=== PATIENT | male | born 1960 | race Caucasian/White ===

== ENCOUNTER 2017-01-27 18:00 | Inpatient (IN) | payer OTHER ==
[2017-01-27] MEDS ORDERED: Sodium Chloride 0.9% 1000 ML 1,000 ML IV STA (18:44)
[2017-01-27] MEDS ORDERED: DUONEB 0.5-3 MG/3 ml Neb IH ONE (18:44)
[2017-01-27] MEDS ORDERED: Sodium Chloride 0.9% 1000 ML 1,000 ML ONE (18:50)
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
[2017-01-27 19:05] LABS: Mean Cell Volume 93.3 fl (78-100); Mean Corpuscular Hemoglobin 31.4 pg (26-32); Mean Platelet Volume 11.3 fl (6-9.5); Platelet Count 147 K/mm3 (150-450); Red Blood Count 5.25 M/mm3 (4.1-5.6); Red Cell Distribution Width 14.1 % (11.5-14.0); White Blood Count 12.6 K/mm3 (4.0-10.5)
[2017-01-27] MEDS ORDERED: PROVENTIL 2.5 MG/3 ML NEB IH ONE ×2 (19:09→19:21)
[2017-01-27 19:15] LABS: ALBUMIN 3.8 g/dL (3.4-5.0); ALKALINE PHOSPHATASE 90 U/L (46-116); ANION GAP 16.2 MEQ/L (5-15); BILIRUBIN,TOTAL 0.5 mg/dL (0.2-1.0); BLOOD UREA NITROGEN 14 mg/dL (9-20); CHLORIDE 104 mEq/L (98-107); Carbon Dioxide 22.3 mEq/L (21-32); Glucose 210 MG/DL (70-110); Potassium 3.6 mEq/L (3.5-5.1); SGOT/AST 24 U/L (15-37); SGPT/ALT 28 U/L (12-78); SODIUM 139 mEq/L (136-145); Total Protein 7.5 gm/dL (6.4-8.2)
[2017-01-27 19:16] LABS: TROPONIN < 0.017 ng/ml (0.000-0.056)
[2017-01-27] MEDS ORDERED: ROCEPHIN 1 Gm-D5w 50 ml Bag** 50 ML IV ONE ×2 (19:38→19:45)
[2017-01-27] MEDS ORDERED: solu-MEDROL 125 MG IV ONE (19:38)
[2017-01-27] MEDS ORDERED: MORPHINE SULFATE 4 MG INJ IV ONE (19:39)
[2017-01-27] MEDS ORDERED: Zofran 4 MG/2 ML VIAL IV ONE (19:39)
[2017-01-27] MEDS ORDERED: Zofran 4 MG/2 ML VIAL ONE (19:44)
[2017-01-27] MEDS ORDERED: MORPHINE SULFATE 4 MG INJ ONE (19:45)
[2017-01-27] MEDS ORDERED: solu-MEDROL 125 MG ONE (19:45)
[2017-01-27 19:53] LABS: Eosinophil 2 % (0.00-3.0); Total Cells Counted 100
[2017-01-27 19:54] LABS: Platelet Estimate NORMAL (NORMAL)
[2017-01-27 20:04] LABS: VBG BASE EXCESS 0.6 (-2.0-2.0); VBG CARBOXYHEMOGLOBIN 4.1 % T HGB (0.0-6.9); VBG HCO3- 27.1 meq/L (22-28); VBG HEMOGLOBIN 15.5; VBG O2 SATURATION 52.9 (95-100); VBG POTASSIUM 3.7 (3.5-5.1); VBG pH 7.35 (7.32-7.42)
[2017-01-27] MEDS ORDERED: Zofran 4 MG/2 ML VIAL IV PRN (21:00)
[2017-01-27] MEDS ORDERED: Sodium Chloride 0.9% 1000 ML 1,000 ML IV SCH (21:00)
[2017-01-27] MEDS: PROVENTIL 2.5 MG/3 ML NEB IH SCH (22:29)
[2017-01-28] MEDS ORDERED: solu-MEDROL 125 MG IV SCH
[2017-01-28] MEDS: Sodium Chloride 0.9% 1000 ML 1,000 ML IV SCH ×2 (01:19→14:03)
[2017-01-28] MEDS: solu-MEDROL 125 MG IV SCH ×5 (02:28→23:57)
[2017-01-28] MEDS: PROVENTIL 2.5 MG/3 ML NEB IH SCH ×6 (03:06→23:07)
[2017-01-28 05:34] LABS: Mean Cell Volume 94.7 fl (78-100); Mean Corpuscular Hemoglobin 31.3 pg (26-32); Mean Platelet Volume 11.4 fl (6-9.5); Platelet Count 133 K/mm3 (150-450); Red Blood Count 4.89 M/mm3 (4.1-5.6); White Blood Count 14.1 K/mm3 (4.0-10.5)
[2017-01-28 06:06] LABS: ALBUMIN 3.4 g/dL (3.4-5.0); ALKALINE PHOSPHATASE 82 U/L (46-116); ANION GAP 13.2 MEQ/L (5-15); BILIRUBIN,TOTAL 0.3 mg/dL (0.2-1.0); BLOOD UREA NITROGEN 14 mg/dL (9-20); CHLORIDE 105 mEq/L (98-107); Carbon Dioxide 25.2 mEq/L (21-32); Glucose 219 MG/DL (70-110); Potassium 4.2 mEq/L (3.5-5.1); SGOT/AST 16 U/L (15-37); SGPT/ALT 29 U/L (12-78); SODIUM 139 mEq/L (136-145)
[2017-01-28] MEDS: NovoLOG Insulin SQ PRN ×3 (08:01→18:04)
[2017-01-28] MEDS: ROCEPHIN 1 Gm-D5w 50 ml Bag** 50 ML IV SCH (08:25)
--- NOTE | 2017-01-28 08:58 | XRAY ---
Indication: Cough and short of breath. Comparison: June 05, 2016. Portable chest remains hyperinflated without focal infiltrate, consolidation, or large effusion. Heart is not enlarged. Stable mediastinal calcified nodes. Bony thorax intact again with mild osteopenia and degenerative changes. Impression: Stable nonacute hyperinflated chest with chronic features.
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
[2017-01-28] MEDS ORDERED: Spiriva 18 Mcg/Cap Inhaler IH ONE (09:04)
[2017-01-28] MEDS: Aminophylline 500 MG/20 ML*** 500 MG in Sodium Chloride 0.9% 500 ML 480 ML IV SCH (09:50)
[2017-01-28] MEDS: Zithromax 500 MG/ 250 ML NaCl Premix 250 ML IV SCH (09:50)
[2017-01-28] MEDS: Norco 10/325 MG Tablet PO PRN ×3 (09:52→22:14)
[2017-01-28] MEDS ORDERED: PNEUMOVAX 23 IM ONE (10:00)
[2017-01-28] MEDS ORDERED: FLUZONE QUAD 2016-2017 SYRINGE 36MO-64YO IM ONE (10:00)
[2017-01-28] MEDS ORDERED: PHARMACY DOSING REQUEST MC ONE (10:05)
[2017-01-28] MEDS: Spiriva 18 Mcg/Cap Inhaler IH SCH (19:49)
[2017-01-29] MEDS: MORPHINE SULFATE 4 MG INJ IV PRN ×2 (00:13→05:12)
[2017-01-29] MEDS: Sodium Chloride 0.9% 1000 ML 1,000 ML IV SCH ×2 (00:13→09:52)
[2017-01-29] MEDS: Aminophylline 500 MG/20 ML*** 500 MG in Sodium Chloride 0.9% 500 ML 480 ML IV SCH ×3 (00:13→15:05)
[2017-01-29] MEDS: Norco 10/325 MG Tablet PO PRN ×3 (02:28→13:05)
[2017-01-29] MEDS: PROVENTIL 2.5 MG/3 ML NEB IH SCH (02:55)
[2017-01-29] MEDS: solu-MEDROL 125 MG IV SCH ×3 (05:22→17:36)
[2017-01-29] MEDS ORDERED: Xopenex 1.25 MG/0.5 ML UD NEBULE IH SCH (07:00)
[2017-01-29] MEDS: Xopenex 1.25 MG/0.5 ML UD NEBULE IH SCH ×5 (08:00→23:10)
[2017-01-29] MEDS: Sodium Chloride 3 ML UD NEBULES IH SCH ×5 (08:00→23:10)
[2017-01-29] MEDS: Spiriva 18 Mcg/Cap Inhaler IH SCH (08:00)
[2017-01-29] MEDS: NovoLOG Insulin SQ PRN ×2 (08:29→17:36)
[2017-01-29] MEDS: ROCEPHIN 1 Gm-D5w 50 ml Bag** 50 ML IV SCH (11:49)
[2017-01-29] MEDS: Zithromax 500 MG/ 250 ML NaCl Premix 250 ML IV SCH (12:59)
--- NOTE | 2017-01-29 14:15 | PCM.NOTE ---
Date and Time: 01/29/17 140 Subjective Assessment: Pt feeling a little better. Elijah po fine. Coughing up quite a bit of sputum. C/o lower back pain. Smokes 1 PPD, would like a patch. - Review of Systems Constitutional: No Fever Respiratory: Cough, Short Of Breath Objective Exam General Appearance: no apparent distress Neurologic Exam: alert, oriented x 3, cooperative Skin Exam: normal color, warm, dry Respiratory Exam: diminished breath sounds (good air exchange), wheezing ( throughout, expiratory), No crackles/rales, No rhonchi Cardiovascular Exam: regular rate/rhythm, normal heart sounds, No murmur Extremity Exam: No pedal edema, No swelling Back Exam: normal inspection OBJECTIVE DATA Vital Signs: Vital Signs - 24 hr Temp Pulse Resp BP Pulse Ox 01/29/17 13:49 20 01/29/17 11:41 97.8 F 88 20 125/67 93 L 01/29/17 11:00 85 18 94 L 01/29/17 10:00 181 H 01/29/17 07:36 98.3 F 88 20 102/57 96 01/29/17 07:00 96 H 20 95 01/29/17 06:00 20 01/29/17 04:00 97.7 F 89 22 104/50 92 L 01/29/17 02:55 89 22 92 L 01/29/17 02:00 21 01/28/17 23:44 97.7 F 91 H 18 99/58 92 L 01/28/17 23:07 98 H 18 89 L 01/28/17 22:00 18 01/28/17 19:51 97.7 F 112 H 26 H 140/70 94 L 01/28/17 19:11 96 H 24 91 L 01/28/17 18:00 20 01/28/17 16:00 97.7 F 106 H 20 121/68 91 L Oxygen-Last 24 hours O2 Percentage 4 Liters = 36% O2 Percentage 4 Liters = 36% O2 Percentage 4 Liters = 36% O2 Percentage 4 Liters = 36% O2 Percentage 3 Liters = 32% O2 Percentage 3 Liters = 32% Pain Assessment - Last Documented Pain Intensity 7 Pain Scale Used 0-10 Pain Scale Intake and Output: Intake & Output 03/02/17 03/03/17 03/04/17 03/05/17 11:59 11:59 11:59 11:59 Intake Total 480 7329 480 Output Total 5050 Balance 480 3371 480 Weight 101.65 kg 104.236 kg Lab Results: Accuchecks Date 01/28/17 Date 01/28/17 Time 22:00 Time 16:30 Accucheck Value: 198 Accucheck Value: 221 Accucheck Value: 199 Accucheck Value: 231 Lab Results-Last 24 Hours 01/29/17 Range/Units 05:40 Theophylline 6.6 L (10-20.0) ug/ml Multi-Disciplinary Progress Notes: Multi-Disciplinary Progress Notes 01/29/17 09:19 Pharmacy Note by Willian Romero Theophyline level low at 6.6. Had not had 24hrs of infusion yet. Will increase rate to 45mg/hr though to ensure therapeutic level. Initialized on 01/29/17 09:19 - END OF NOTE Assessment/Plan (1) COPD with exacerbation Current Visit: Yes Status: Acute Assessment & Plan: He is on rocephin and zithromax IV, solumedrol 125mg IV , and aminophylline. He is actually moving air pretty well. Still on 4L NC and doesn't typically use O2 at home, although he would not mind to go home on O2 when he is discharged. He will need several more days of IV treatment before considering discharge. Code(s): J44.1 - CHRONIC OBSTRUCTIVE PULMONARY DISEASE W (ACUTE) EXACERBATION (2) Anxiety Current Visit: No Status: Chronic Code(s): F41.9 - ANXIETY DISORDER, UNSPECIFIED (3) Chronic back pain Current Visit: No Status: Chronic Qualifiers: Back pain location: low back pain Back pain laterality: unspecified Sciatica presence: unspecified whether sciatica present Qualified Code(s): M54.5 - Low back pain; G89.29 - Other chronic pain Assessment & Plan: will change norco to percocet, remove the morphine from patient's medicines. Code(s): M54.9 - DORSALGIA, UNSPECIFIED; G89.29 - OTHER CHRONIC PAIN (4) Tobacco abuse Current Visit: Yes Status: Acute Assessment & Plan: nicotine patch. advised pt he should quit smoking. Code(s): Z72.0 - TOBACCO USE
[2017-01-29 14:54] LABS: Mean Cell Volume 98.7 fl (78-100); Mean Corpuscular Hemoglobin 31.6 pg (26-32); Platelet Count 162 K/mm3 (150-450); Red Blood Count 4.59 M/mm3 (4.1-5.6); Red Cell Distribution Width 14.6 % (11.5-14.0); White Blood Count 21.3 K/mm3 (4.0-10.5)
[2017-01-29] MEDS: Nicoderm CQ 21 MG TOP SCH (14:59)
[2017-01-29 15:03] LABS: ANION GAP 19.5 MEQ/L (5-15); BLOOD UREA NITROGEN 17 mg/dL (9-20); CHLORIDE 106 mEq/L (98-107); Carbon Dioxide 21.5 mEq/L (21-32); Glucose 205 MG/DL (70-110); Potassium 4.2 mEq/L (3.5-5.1); SODIUM 143 mEq/L (136-145)
[2017-01-29] MEDS: OXYCODONE-ACETAMINOPHEN 10-325 PO PRN ×2 (15:05→22:44)
[2017-01-29 16:25] LABS: BAND 1 % (0.0-2.0); Total Cells Counted 100
[2017-01-29 16:26] LABS: ANISOCYTOSIS 1+; Platelet Estimate NORMAL (NORMAL); Poikilocytosis 1+
[2017-01-30] MEDS: Sodium Chloride 0.9% 1000 ML 1,000 ML IV SCH ×2 (00:09→10:18)
[2017-01-30] MEDS: solu-MEDROL 125 MG IV SCH ×4 (00:10→17:04)
[2017-01-30] MEDS: OXYCODONE-ACETAMINOPHEN 10-325 PO PRN ×4 (02:37→19:18)
[2017-01-30] MEDS: Sodium Chloride 3 ML UD NEBULES IH SCH ×4 (02:58→14:55)
[2017-01-30] MEDS: Xopenex 1.25 MG/0.5 ML UD NEBULE IH SCH ×5 (02:58→18:59)
[2017-01-30] MEDS: Aminophylline 500 MG/20 ML*** 500 MG in Sodium Chloride 0.9% 500 ML 480 ML IV SCH ×2 (04:19→16:57)
[2017-01-30] MEDS: Spiriva 18 Mcg/Cap Inhaler IH SCH (06:58)
[2017-01-30] MEDS: ROCEPHIN 1 Gm-D5w 50 ml Bag** 50 ML IV SCH (09:35)
[2017-01-30] MEDS: Zithromax 500 MG/ 250 ML NaCl Premix 250 ML IV SCH (10:15)
[2017-01-30] MEDS: Nicoderm CQ 21 MG TOP SCH (10:19)
[2017-01-30] MEDS: NovoLOG Insulin SQ PRN (11:30)
--- NOTE | 2017-01-30 11:52 | PCM.NOTE ---
Date and Time: 01/30/17 1147 Subjective Assessment: Pt feeling worse, about like at admission. States no BM for the past 3 days. Was off NC briefly because he was blowing his nose and forgot to put it back on. Objective Exam General Appearance: mild distress (tachypneic), other (appears very fatigued) Neurologic Exam: alert, oriented x 3, cooperative Skin Exam: normal color, warm, dry Respiratory Exam: diminished breath sounds, wheezing (throughout, mild), other ( good air exchange. tachypneic) Cardiovascular Exam: regular rate/rhythm, normal heart sounds, No murmur Extremity Exam: No pedal edema, No swelling Back Exam: normal inspection OBJECTIVE DATA Vital Signs: Vital Signs - 24 hr Temp Pulse Resp BP Pulse Ox 01/30/17 11:34 97.8 F 98 H 22 149/79 92 L 01/30/17 10:49 99 H 26 H 96 01/30/17 10:00 22 01/30/17 07:59 97.8 F 85 20 172/91 93 L 01/30/17 06:58 85 20 95 01/30/17 06:00 24 01/30/17 04:00 97.7 F 80 22 128/77 90 L 01/30/17 02:58 80 22 90 L 01/30/17 02:00 21 01/30/17 00:00 97.7 F 100 H 21 145/82 93 L 01/29/17 23:10 100 H 21 93 L 01/29/17 22:00 20 01/29/17 20:00 98.1 F 86 22 114/56 96 01/29/17 19:03 93 H 16 96 01/29/17 17:44 22 01/29/17 16:00 98.5 F 95 H 22 137/67 92 L 01/29/17 15:00 112 H 20 96 01/29/17 13:49 20 Oxygen-Last 24 hours O2 Percentage 3 Liters = 32% O2 Percentage 3 Liters = 32% O2 Percentage 35% O2 Percentage 4 Liters = 36% Pain Assessment - Last Documented Pain Intensity 5 Pain Scale Used 0-10 Pain Scale Intake and Output: Intake & Output 01/27/17 01/28/17 01/29/17 01/30/17 11:59 11:59 11:59 11:59 Intake Total 962 4626 0923 Output Total 0341 8486 Balance 480 0249 3266 Weight 101.65 kg 104.236 kg 105.415 kg Lab Results: Accuchecks Date 01/30/17 Date 01/30/17 Date 01/29/17 Date 01/29/17 Time 11:37 Time 07:30 Time 22:00 Time 16:30 Accucheck Value: 205 Accucheck Value: 194 Accucheck Value: 144 Accucheck Value: 242 Lab Results-Last 24 Hours 01/29/17 01/29/17 01/29/17 Range/Units 05:30 05:30 05:30 WBC 21.3 H (4.0-10.5) K/mm3 RBC 4.59 (4.1-5.6) M/mm3 Hgb 14.5 (12.5-18.0) gm/dl Hct 45.3 (42-50) % MCV 98.7 (78-100) fl MCH 31.6 (26-32) pg MCHC 32.0 (32-36) g/dl RDW 14.6 H (11.5-14.0) % Plt Count 162 (150-450) K/mm3 MPV 12.0 H (6-9.5) fl Segmented Neutrophils 91 H (36.-66.) % Band Neutrophils 1 (0.0-2.0) % Lymphocytes (Manual) 7 L (24-44) % Monocytes (Manual) 1 (0.0-12.0) % Platelet Estimate NORMAL (NORMAL) Poikilocytosis 1+ Anisocytosis 1+ Sodium 143 (136-145) mEq/L Potassium 4.2 (3.5-5.1) mEq/L Chloride 106 (98-107) mEq/L Carbon Dioxide 21.5 (21-32) mEq/L Anion Gap 19.5 H (5-15) MEQ/L BUN 17 (9-20) mg/dL Creatinine 1.03 (0.55-1.30) mg/dl Estimated GFR > 60 ML/MIN Glucose 205 H (70-110) MG/DL Hemoglobin A1c 6.7 H (4.5-6.2) Calcium 8.7 (8.5-10.1) mg/dL Radiology Exams: Radiology Procedures Category Date Time Status CHEST WITH CONTRAST [CT] Stat Exams 01/30/17 11:45 Ordered Assessment/Plan (1) Dyspnea Current Visit: Yes Status: Acute Assessment & Plan: worsened since yesterday. Will do CTA chest to r/o PE. If neg for PE, will place on lovenox. Check ABG, troponin, EKG, BMP, BNP, and CBC - all stat. Code(s): R06.00 - DYSPNEA, UNSPECIFIED (2) COPD with exacerbation Current Visit: Yes Status: Acute Assessment & Plan: On IV rocephin, zithromax, and aminophylline as well as methylprednisolone 125mg IV q6h. I anticipated being able to decrease the steroid today but in light of his increased dyspnea will hold off for now. Consider pulmonary consult if not improving. Code(s): J44.1 - CHRONIC OBSTRUCTIVE PULMONARY DISEASE W (ACUTE) EXACERBATION (3) Anxiety Current Visit: No Status: Chronic Code(s): F41.9 - ANXIETY DISORDER, UNSPECIFIED (4) Chronic back pain Current Visit: No Status: Chronic Qualifiers: Back pain location: low back pain Back pain laterality: unspecified Sciatica presence: unspecified whether sciatica present Qualified Code(s): M54.5 - Low back pain; G89.29 - Other chronic pain Code(s): M54.9 - DORSALGIA, UNSPECIFIED; G89.29 - OTHER CHRONIC PAIN (5) Tobacco abuse Current Visit: Yes Status: Acute Code(s): Z72.0 - TOBACCO USE (6) Leukocytosis Current Visit: Yes Status: Acute Assessment & Plan: I think likely due to the steroids. recheck today. Code(s): D72.829 - ELEVATED WHITE BLOOD CELL COUNT, UNSPECIFIED
[2017-01-30 12:09] LABS: A-aADO2 139; ARTERIAL BLD GAS O2 SATURATION 97.3 % (95-100); ARTERIAL BLOOD GAS BASE EXCESS -2.1 (-2.0-2.0); ARTERIAL BLOOD GAS FIO2 36 %; ARTERIAL BLOOD GAS PO2 71 mmHg (75-100); ARTERIAL BLOOD GAS pH 7.39 (7.35-7.45)
[2017-01-30 12:14] LABS: Mean Cell Volume 95.4 fl (78-100); Mean Corpuscular Hemoglobin 31.3 pg (26-32); Mean Platelet Volume 11.5 fl (6-9.5); Platelet Count 169 K/mm3 (150-450); Red Blood Count 4.79 M/mm3 (4.1-5.6); Red Cell Distribution Width 14.2 % (11.5-14.0); White Blood Count 17.5 K/mm3 (4.0-10.5)
[2017-01-30 12:50] LABS: ALBUMIN 3.3 g/dL (3.4-5.0); ALKALINE PHOSPHATASE 76 U/L (46-116); ANION GAP 16.8 MEQ/L (5-15); BLOOD UREA NITROGEN 20 mg/dL (9-20); CHLORIDE 105 mEq/L (98-107); Carbon Dioxide 23.5 mEq/L (21-32); Glucose 235 MG/DL (70-110); Potassium 4.1 mEq/L (3.5-5.1); SGOT/AST 14 U/L (15-37); SODIUM 141 mEq/L (136-145); Total Protein 6.6 gm/dL (6.4-8.2)
[2017-01-30] MEDS: Zosyn 3.375GM/100 Ml D5W 100 ML IV SCH ×2 (13:35→17:03)
[2017-01-30 13:51] LABS: SGPT/ALT 22 U/L (12-78)
[2017-01-30 13:54] LABS: BILIRUBIN,TOTAL < 0.1 mg/dL (0.2-1.0)
[2017-01-30 14:27] LABS: Total Cells Counted 100
[2017-01-30 14:28] LABS: ANISOCYTOSIS 1+; Platelet Estimate NORMAL (NORMAL); Poikilocytosis 1+
[2017-01-30] MEDS ORDERED: ENOXAPARIN SODIUM SQ SCH (15:00)
[2017-01-30] MEDS ORDERED: Colace 100 MG PO PRN (16:04)
[2017-01-30 16:41] VITALS: BP 157/80
[2017-01-30 19:07] VITALS: PULSE 113; O2SAT 95
--- NOTE | 2017-01-30 21:09 | XRAY ---
Indication: Dyspnea. Comparison: January 27, 2017. Portable chest less inflated today with new left mid to lower long infiltrate versus atelectasis. No consolidation or large effusion. Right lung clear. Heart is not enlarged. Comment: Preliminary interpretation was made by C. No discrepancy.
[2017-01-31] MEDS ORDERED: ENOXAPARIN SODIUM SQ SCH (06:00)
--- NOTE | 2017-01-31 09:36 | XRAY ---
Indication: Dyspnea. Multiple contiguous axial images obtained through the chest without contrast. Examination was ordered with IV contrast using PE protocol however the IV access was lost during injection. Comparison: None Lungs demonstrates minimal bibasilar dependent atelectasis, left greater than right as well as additional areas of subsegmental atelectasis/scarring in the posterior right upper, inferior lingular, and left lower lobes. No suspicious pulmonary mass, infiltrate, consolidation, or effusion. Heart is not enlarged. Aorta is normal in course and caliber. Several chunky mediastinal and left hilar lymph nodes. No pathologic mediastinal lymphadenopathy. Bony thorax intact with minimal degenerative changes throughout the spine. Limited upper abdomen including adrenal glands are unremarkable. Impression: CT chest without contrast exam demonstrates bilateral atelectasis/scarring as detailed. No acute cardiopulmonary abnormalities. Evidence for old granulomatous disease. CTDI 22.21
[2017-01-31] MEDS ORDERED: Miralax Powder 17GM PACKET PO SCH (10:00)
== END 2017-01-30 19:50 | disposition home or self-care (01) | DRG 192 ==
LOC: ED 18:00 → MED SURG 20:57 → OBSVTOIN 01-30 11:45
PROVIDERS: ADMIT Family Medicine; ATTEND Family Medicine
DX: J44.1 Chronic obstructive pulmonary disease with (acute) exacerbation (principal); F41.9 Anxiety disorder, unspecified; M54.9 Dorsalgia, unspecified; G89.29 Other chronic pain; F45.42 Pain disorder with related psychological factors; Z72.0 Tobacco use; D72.829 Elevated white blood cell count, unspecified
CPT/HCPCS: 36000; 36415; 36600; 71010; 71250; 80048; 80053; 80198; 82375; 82803; 82805; 82962; 83036; 83605; 83880; 84484; 85025; 85027; 87040; 87070; 87077; 87186; 90686; 90732; 93005; 93268; 94640; 94760; 94761; 96360; 96365; 96374; 96375; 99285; G0008; G0378; J0280; J0456; J0696; J1650; J2270; J2405; J2543; J2930

== ENCOUNTER 2017-02-01 10:40 | Emergency (ER) | payer OTHER ==
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
[2017-02-01 11:50] VITALS: BP 159/90; PULSE 67; O2SAT 95
== END 2017-02-01 11:50 | disposition home or self-care (01) ==
LOC: ED 10:40
DX: J40 Bronchitis, not specified as acute or chronic (principal); F23 Brief psychotic disorder; R45.1 Restlessness and agitation; E11.9 Type 2 diabetes mellitus without complications
CPT/HCPCS: 99285

== ENCOUNTER 2017-09-14 19:50 | Emergency (ER) | payer OTHER ==
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
[2017-09-14] MEDS ORDERED: ROCEPHIN 1 Gm-D5w 50 ml Bag** 1 G/50 ML IVPB IV STA (20:37)
[2017-09-14] MEDS ORDERED: Xopenex 1.25 MG/0.5 ML UD NEBULE IH ONE ×2 (20:37→20:50)
[2017-09-14] MEDS ORDERED: Zithromax 500 MG/ 250 ML NaCl Premix 500 MG/250 ML IVPB IV STA (20:37)
[2017-09-14] MEDS ORDERED: Robitussin AC Syrup Unit Dose Cup PO PRN (20:38)
[2017-09-14] MEDS ORDERED: Sodium Chloride 0.9% 1000 ML 1,000 ML IV SCH (20:45)
[2017-09-14] MEDS ORDERED: Sodium Chloride 0.9% 1000 ML 1,000 ML ONE (20:47)
[2017-09-14] MEDS ORDERED: Robitussin AC Syrup Unit Dose Cup ONE (20:47)
[2017-09-14] MEDS ORDERED: ROCEPHIN 1 Gm-D5w 50 ml Bag** 1 G/50 ML IVPB IV ONE (20:47)
[2017-09-14] MEDS ORDERED: Zithromax 500 MG/ 250 ML NaCl Premix 500 MG/250 ML IVPB IV ONE (20:47)
[2017-09-14 20:48] LABS: Mean Cell Volume 94.5 fl (78-100); Mean Corpuscular Hemoglobin 31.5 pg (26-32); Mean Platelet Volume 11.9 fl (6-9.5); Platelet Count 203 K/mm3 (150-450); Red Blood Count 5.49 M/mm3 (4.1-5.6); Red Cell Distribution Width 14.5 % (11.5-14.0); White Blood Count 9.2 K/mm3 (4.0-10.5)
[2017-09-14] MEDS ORDERED: Sodium Chloride 3 ML UD NEBULES IH ONE (20:51)
[2017-09-14 20:59] LABS: ALBUMIN 4.7 g/dL (3.4-5.0); ALKALINE PHOSPHATASE 89 U/L (46-116); ANION GAP 17.3 MEQ/L (5-15); BLOOD UREA NITROGEN 20 mg/dL (9-20); CHLORIDE 103 mEq/L (98-107); Carbon Dioxide 22.4 mEq/L (21-32); Glucose 111 MG/DL (70-110); LIPASE 125 U/L (73-393); Potassium 3.9 mEq/L (3.5-5.1); SGOT/AST 33 U/L (15-37); SGPT/ALT 49 U/L (12-78); SODIUM 139 mEq/L (136-145); Total Protein 8.2 gm/dL (6.4-8.2)
[2017-09-14 21:01] LABS: ADD URINE CULTURE? NO (NO); Bilirubin NEGATIVE (NEGATIVE); Blood NEGATIVE Ery/ul (0-5); COMPLETE URINE MICROSCOPIC? NO; Collection Type CLEAN CATCH; Glucose NEGATIVE (NEGATIVE); Leukocyte Esterase NEGATIVE (NEGATIVE)
[2017-09-14] MEDS ORDERED: Phenergan 25 MG INJ IV ONE (21:07)
[2017-09-14] MEDS ORDERED: SUBLIMAZE 100 MCG/2 ML IV ONE (21:07)
[2017-09-14 21:08] LABS: ETHYL ALCOHOL < 0.010 % (0.00-0.01); MAGNESIUM 2.2 mg/dL (1.8-2.4)
[2017-09-14 21:35] LABS: Eosinophil 1 % (0.00-3.0); Platelet Estimate NORMAL (NORMAL); Total Cells Counted 100
[2017-09-14] MEDS ORDERED: SUBLIMAZE 100 MCG/2 ML ONE (21:51)
[2017-09-14] MEDS ORDERED: Phenergan 25 MG INJ ONE (21:51)
[2017-09-14 22:04] LABS: A-aADO2 24; ARTERIAL BLD GAS O2 SATURATION 99.7 % (95-100); ARTERIAL BLOOD GAS BASE EXCESS -0.7 (-2.0-2.0); ARTERIAL BLOOD GAS FIO2 28 %; ARTERIAL BLOOD GAS PO2 126 mmHg (75-100); ARTERIAL BLOOD GAS pH 7.39 (7.35-7.45)
[2017-09-14 22:05] LABS: ALLEN TEST OK? YES
[2017-09-14 22:58] VITALS: BP 120/70; PULSE 76; O2SAT 97
--- NOTE | 2017-09-15 08:48 | XRAY ---
Indication: Headache and ringing ears for 2 years. Multiple contiguous axial images obtained through the head without contrast. Comparison: June 05, 2016. Again normal appearing brain parenchyma, ventricles, and bony calvarium. Mild mucosal thickening of the right ethmoid and sphenoid sinuses. Mastoid air cells are clear. Impression: Stable normal CT head without contrast exam again with incidental paranasal sinus disease. CTDI 67.41
--- NOTE | 2017-09-15 08:54 | XRAY ---
Indication: Abdomen and back pain. Multiple contiguous axial images obtained through the abdomen and pelvis without contrast as ordered. Comparison: September 09, 2015. Lung bases again demonstrates minimal bibasilar atelectasis/scarring. Heart is not enlarged. Noncontrasted stomach and bowel loops appear nonobstructed. Normal appendix. No free fluid/air. Stable fatty liver, nonobstructing punctate left renal calculus, and left renal cyst. Remaining liver, gallbladder, pancreas, spleen, adrenal glands, kidneys, ureters, and bladder appear unremarkable for noncontrast exam. There remains mild aortoiliac calcifications without AAA. Osseous structures intact again with mild spinal degenerative changes. Impression: 1. Stable fatty liver, nonobstructing left renal micro-calculus, and left renal cysts. 2. No new/acute intra-abdominal/pelvic abnormalities on this noncontrast exam. CT DI 23.43
--- NOTE | 2017-09-15 08:54 | XRAY ---
Indication: Cough. Comparison: January 30, 2017. PA/lateral chest hyperinflated and clear. Heart is not enlarged. Vascularity normal. Bony thorax intact again with mild osteopenia and degenerative changes. Impression: Nonacute hyperinflated chest.
== END 2017-09-14 22:58 | disposition home or self-care (01) ==
LOC: ED 19:50
DX: M62.81 Muscle weakness (generalized) (principal); J40 Bronchitis, not specified as acute or chronic; J02.9 Acute pharyngitis, unspecified; R51 Headache; R10.9 Unspecified abdominal pain; J44.9 Chronic obstructive pulmonary disease, unspecified; E11.9 Type 2 diabetes mellitus without complications; M19.90 Unspecified osteoarthritis, unspecified site; F41.9 Anxiety disorder, unspecified; F32.9 Major depressive disorder, single episode, unspecified
CPT/HCPCS: 36000; 36415; 36600; 70450; 71020; 74176; 80053; 80307; 81002; 82150; 82375; 82803; 83690; 83735; 83880; 84484; 85025; 85652; 86308; 87040; 87070; 87430; 87631; 93005; 94640; 96360; 96361; 96365; 96367; 96374; 96375; 99284; G0481; J0456; J0696; J2550; J3010; A9270-GY

== ENCOUNTER 2019-01-15 05:47 | Emergency (ER) | payer OTHER ==
[2019-01-15] MEDS ORDERED: BENADRYL 50 MG/ML IV ONE (06:00)
[2019-01-15] MEDS ORDERED: PROTONIX 40 MG IV IV ONE ×2 (06:00→06:14)
[2019-01-15] MEDS ORDERED: MORPHINE SULFATE 10 MG/ML IV ONE (06:00)
[2019-01-15] MEDS ORDERED: Zofran 4 MG/2 ML VIAL IV ONE (06:00)
[2019-01-15] MEDS ORDERED: Sodium Chloride 0.9% 1000 ML 1,000 ML IV STA (06:00)
[2019-01-15] MEDS ORDERED: Pepcid 20 MG VIAL IV ONE ×2 (06:00→06:14)
[2019-01-15] MEDS ORDERED: Zofran 4 MG/2 ML VIAL ONE (06:13)
[2019-01-15] MEDS ORDERED: Sodium Chloride 0.9% 1000 ML 1,000 ML ONE (06:14)
[2019-01-15] MEDS ORDERED: MORPHINE SULFATE 10 MG/ML ONE (06:14)
[2019-01-15] MEDS ORDERED: BENADRYL 50 MG/ML ONE (06:14)
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
[2019-01-15] MEDS ORDERED: DUONEB 0.5-3 MG/3 ml Neb IH ONE ×2 (06:20→07:12)
[2019-01-15 06:33] LABS: BASOPHIL % 0.2 % (0.0-0.4); Basophil (Absolute #) 0.03 (0-0.4); Eosinophil % 1.2 % (0.00-5.0); Eosinophil (Absolute #) 0.15 (0-0.5); Granulocyte Absolute (ANC) 8.68 (1.4-6.9); Hematocrit 50.6 % (42-50); Hemoglobin 16.8 gm/dl (12.5-18.0); Lymphocyte (Absolute #) 2.81 (1.0-4.6); Lymphocytes % 22.3 % (24.0-44.0); Mean Cell Volume 95.5 fl (78-100); Mean Corpuscular Hemoglobin 31.7 pg (26-32); Mean Corpuscular Hgb Concent. 33.2 g/dl (32-36); Mean Platelet Volume 11.6 fl (6-9.5); Monocyte (Absolute #) 0.92 (0.0-1.3); Monocytes % 7.3 % (0.0-12.0); Platelet Count 169 K/mm3 (150-450); White Blood Count 12.6 K/mm3 (4.0-10.5)
[2019-01-15 06:44] LABS: ALBUMIN 4.6 g/dL (3.5-5.0); ALKALINE PHOSPHATASE 93 U/L (38-126); AMYLASE 65 U/L (30-110); ANION GAP 14.1 MEQ/L (5-15); BLOOD UREA NITROGEN 17 mg/dL (9-20); CHLORIDE 106 mmol/L (98-107); Calcium 9.4 mg/dL (8.4-10.2); Carbon Dioxide 22 mmol/L (22-30); Creatinine 1 0.73 mg/dL (0.66-1.25); Glucose 126 mg/dL (74-106); LIPASE 95 U/L (23-300); Potassium 4.2 mmol/L (3.5-5.1); SGOT/AST 32 U/L (17-59); SGPT/ALT 37 U/L (0-50); SODIUM 138 mmol/L (137-145); Total Protein 7.5 g/dL (6.3-8.2)
[2019-01-15 07:17] VITALS: BP 128/83; O2SAT 94
[2019-01-15 07:34] VITALS: PULSE 91
--- NOTE | 2019-01-15 09:06 | XRAY ---
Indication: Chronic abdominal pain. Multiple contiguous axial images obtained through the abdomen and pelvis without contrast. Comparison: September 14, 2017. Lung bases again demonstrates bibasilar dependent atelectasis. No infiltrate or effusion. Heart is not enlarged. Noncontrasted stomach and bowel loops appear nonobstructed. Normal appendix. No free fluid/air. Stable fatty liver, nonobstructing left renal micro-calculus, left renal cyst, and a benign appearing chunky prostate calcifications. Remaining liver, gallbladder, pancreas, spleen, adrenal glands, kidneys, ureters, and bladder appear unremarkable for noncontrast exam. Stable mild aortoiliac calcifications without AAA. Osseous structures intact again with mild degenerative changes throughout the thoracolumbar spine. No ventral or inguinal hernias. Impression: 1. Stable fatty liver, nonobstructing left renal micro-calculus, and left renal cyst. 2. No new/acute intra-abdominal/pelvic abnormalities on this noncontrast exam. CT DI 23.61
== END 2019-01-15 08:10 | disposition home or self-care (01) ==
LOC: ED 05:47
DX: D72.829 Elevated white blood cell count, unspecified (principal); R19.7 Diarrhea, unspecified; J44.9 Chronic obstructive pulmonary disease, unspecified; E11.9 Type 2 diabetes mellitus without complications; M19.90 Unspecified osteoarthritis, unspecified site; F41.9 Anxiety disorder, unspecified; F32.9 Major depressive disorder, single episode, unspecified; R10.9 Unspecified abdominal pain
CPT/HCPCS: 36000; 36415; 74176; 80053; 82150; 83605; 83690; 84484; 85025; 93005; 94150; 94640; 96360; 96374; 96375; 99285; J1200; J2270; J2405; A9270-GY

== ENCOUNTER 2019-01-18 19:28 | Emergency (ER) | payer OTHER ==
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
[2019-01-18] MEDS ORDERED: Sodium Chloride 0.9% 1000 ML 1,000 ML IV STA (19:47)
[2019-01-18] MEDS ORDERED: Pepcid 20 MG VIAL IV ONE ×3 (19:47→20:31)
[2019-01-18] MEDS ORDERED: Zofran 4 MG/2 ML VIAL IV ONE (19:47)
[2019-01-18 20:06] LABS: BASOPHIL % 0.3 % (0.0-0.4); Basophil (Absolute #) 0.03 (0-0.4); Eosinophil % 1.7 % (0.00-5.0); Eosinophil (Absolute #) 0.18 (0-0.5); Granulocyte Absolute (ANC) 6.33 (1.4-6.9); Granulocytes % 61.4 % (36.0-66.0); Hematocrit 50.5 % (42-50); Hemoglobin 16.7 gm/dl (12.5-18.0); Lymphocyte (Absolute #) 3.05 (1.0-4.6); Lymphocytes % 29.6 % (24.0-44.0); Mean Cell Volume 95.3 fl (78-100); Mean Corpuscular Hemoglobin 31.5 pg (26-32); Mean Corpuscular Hgb Concent. 33.1 g/dl (32-36); Mean Platelet Volume 11.3 fl (6-9.5); Monocyte (Absolute #) 0.72 (0.0-1.3); Platelet Count 168 K/mm3 (150-450); Red Cell Distribution Width 13.7 % (11.5-14.0); White Blood Count 10.3 K/mm3 (4.0-10.5)
[2019-01-18] MEDS ORDERED: Sodium Chloride 0.9% 1000 ML 1,000 ML ONE (20:12)
[2019-01-18] MEDS ORDERED: Zofran 4 MG/2 ML VIAL ONE (20:12)
[2019-01-18 20:17] LABS: ALBUMIN 4.5 g/dL (3.5-5.0); ALKALINE PHOSPHATASE 89 U/L (38-126); AMYLASE 61 U/L (30-110); ANION GAP 12.7 MEQ/L (5-15); BLOOD UREA NITROGEN 15 mg/dL (9-20); CHLORIDE 106 mmol/L (98-107); Calcium 9.1 mg/dL (8.4-10.2); Carbon Dioxide 25 mmol/L (22-30); Creatinine 1 0.82 mg/dL (0.66-1.25); Glucose 116 mg/dL (74-106); LIPASE 97 U/L (23-300); Potassium 4.2 mmol/L (3.5-5.1); SGOT/AST 39 U/L (17-59); SGPT/ALT 42 U/L (0-50); SODIUM 139 mmol/L (137-145); Total Protein 7.2 g/dL (6.3-8.2)
[2019-01-18] MEDS ORDERED: Hydromorphone 1 mg/ml Ampule IV ONE (20:50)
[2019-01-18] MEDS ORDERED: Hydromorphone 1 mg/ml Ampule ONE (21:22)
[2019-01-18 21:51] LABS: Appearance CLEAR (CLEAR); Bilirubin NEGATIVE (NEGATIVE); Blood NEGATIVE Ery/ul (0-5); Glucose NEGATIVE (NEGATIVE); Ketones NEGATIVE (NEGATIVE); Leukocyte Esterase TRACE (NEGATIVE); Mucus SLIGHT /HPF (NEGATIVE); Nitrite NEGATIVE (NEGATIVE); Protein,Urine Dip NEGATIVE (Negative); Specific Gravity 1.016 (1.005-1.025); Urobilinogen NEGATIVE mg/dL (0-1); WBC 0-2 /HPF (0-5)
[2019-01-18 21:54] VITALS: BP 142/92; O2SAT 95
[2019-01-18 21:55] VITALS: PULSE 75
--- NOTE | 2019-01-19 08:59 | XRAY ---
Indication: Recurrent abdominal pain. Multiple contiguous axial images obtained through the abdomen and pelvis without contrast as ordered. Comparison: January 15, 2019. Lung bases again demonstrates minimal lingular fibrosis/scarring. No infiltrate or effusion. Heart is not enlarged. Noncontrasted stomach and bowel loops remain nonobstructed. Normal appendix. There is now mild diffuse scattered colonic fecal debris throughout. No free fluid/air. Stable fatty liver, nonobstructing left renal micro-calculus, left renal cyst, and benign appearing prostate calcifications. Remaining liver, pancreas, spleen, adrenal glands, kidneys, ureters, and bladder appear unremarkable for noncontrast exam. Stable mild aortoiliac calcifications without AAA. Impression: 1. New fecal stasis without obstruction. 2. Stable fatty liver, nonobstructing left renal micro-calculus, and left renal cyst. 3. Remaining CT abdomen/pelvis without contrast exam is negative. CT DI 23.42
== END 2019-01-18 22:08 | disposition home or self-care (01) ==
LOC: ED 19:28
DX: R10.9 Unspecified abdominal pain (principal); E11.9 Type 2 diabetes mellitus without complications; J44.9 Chronic obstructive pulmonary disease, unspecified; M19.90 Unspecified osteoarthritis, unspecified site; F41.9 Anxiety disorder, unspecified; F32.9 Major depressive disorder, single episode, unspecified
CPT/HCPCS: 36000; 36415; 74176; 80053; 81001; 82150; 83605; 83690; 85025; 96360; 96374; 96375; 99284; J1170; J2405

== ENCOUNTER → 2019-07-18 | Emergency (ER) | payer OTHER | LOC: ED 22:37 ==

== ENCOUNTER 2021-04-15 21:41 | Emergency (ER) | payer OTHER ==
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
[2021-04-15 22:41] LABS: Absolute Neutrophil Ct (ANC) 5.41 (1.4-6.9); BASOPHIL % 0.2 % (0.0-0.4); Basophil (Absolute #) 0.02 (0-0.4); Eosinophil % 1.2 % (0.00-5.0); Eosinophil (Absolute #) 0.11 (0-0.5); Hematocrit 55.7 % (42-50); Hemoglobin 18.2 gm/dl (12.5-18.0); Lymphocyte (Absolute #) 2.96 (1.0-4.6); Lymphocytes % 32.3 % (24.0-44.0); Mean Cell Volume 94.1 fl (78-100); Mean Corpuscular Hemoglobin 30.7 pg (26-32); Mean Corpuscular Hgb Concent. 32.7 g/dl (32-36); Mean Platelet Volume 11.6 fl (7.5-11.0); Monocyte (Absolute #) 0.65 (0.0-1.3); Monocytes % 7.1 % (0.0-12.0); Neutrophil % 59.2 % (36.0-66.0); Platelet Count 159 K/mm3 (150-450); Red Blood Count 5.92 M/mm3 (4.1-5.6); Red Cell Distribution Width 13.6 % (11.5-14.0); White Blood Count 9.2 K/mm3 (4.0-10.5)
[2021-04-15 22:53] LABS: ALBUMIN 4.4 g/dL (3.5-5.0); ALKALINE PHOSPHATASE 87 U/L (38-126); ANION GAP 12.7 MEQ/L (5-15); BLOOD UREA NITROGEN 16 mg/dL (9-20); CHLORIDE 104 mmol/L (98-107); Calcium 9.4 mg/dL (8.4-10.2); Carbon Dioxide 26 mmol/L (22-30); Creatinine 1 0.91 mg/dL (0.66-1.25); EST GLOMERULAR FILTRATION RATE > 60.0 ML/MIN; ETHYL ALCOHOL < 10 mg/dL (0-10); Glucose 126 mg/dL (74-106); Potassium 3.7 mmol/L (3.5-5.1); SGOT/AST 23 U/L (17-59); SGPT/ALT 20 U/L (0-50); SODIUM 139 mmol/L (137-145); Total Protein 7.3 g/dL (6.3-8.2)
[2021-04-15 23:11] LABS: Bilirubin NEGATIVE (NEGATIVE); Blood NEGATIVE Ery/ul (0-5); Ketones NEGATIVE (NEGATIVE); Leukocyte Esterase NEGATIVE (NEGATIVE); Mucus SLIGHT /HPF (NEGATIVE); Nitrite NEGATIVE (NEGATIVE); Protein,Urine Dip NEGATIVE (Negative); Urobilinogen 2 mg/dL (0-1)
[2021-04-15 23:20] LABS: Amphetamine,Urine NEGATIVE (NEGATIVE); Benzodiazepine,Urine NEGATIVE (NEGATIVE); Cocaine,Urine NEGATIVE (NEGATIVE); Methadone,Urine NEGATIVE (NEGATIVE); PCP,Urine NEGATIVE (NEGATIVE)
[2021-04-15 23:27] LABS: Barbiturate,Urine NEGATIVE (NEGATIVE)
[2021-04-15 23:31] LABS: Opiate,Urine NEGATIVE (NEGATIVE)
[2021-04-16] MEDS ORDERED: TORAdol 30 mg Injection IV ONE ×2 (00:07→03:04)
[2021-04-16] MEDS ORDERED: TORAdol 30 mg Injection ONE ×2 (00:11→03:16)
[2021-04-16 00:29] LABS: THC,Urine POSITIVE (NEGATIVE)
[2021-04-16 00:33] LABS: Glucose 50 mg/dL (NEGATIVE)
[2021-04-16 00:35] LABS: Appearance CLEAR (CLEAR); Specific Gravity 1.023 (1.005-1.025)
[2021-04-16] MEDS ORDERED: BENADRYL 50 MG/ML IV ONE (02:18)
[2021-04-16] MEDS ORDERED: BENADRYL 50 MG/ML ONE (02:21)
[2021-04-16 03:15] VITALS: BP 121/66; PULSE 72
[2021-04-16 03:40] VITALS: O2SAT 95
--- NOTE | 2021-04-16 09:36 | XRAY ---
Indication: Vertigo, dizziness, and headache. Conventional contrast enhanced CTA neck performed using 80 cc Isovue 370 contrast. Two-dimensional sagittal and coronal reformatted images obtained. Additional 3-dimensional reformatted images obtained using a separate workstation. Comparison: None Following CT exam, patient complained of itching and hives. This was reported to the ER clinician and treated appropriately. Visualized aortic arch demonstrates pre-minimal arteriosclerotic calcifications without aneurysm/dissection. Normal patent branching right brachiocephalic, left common carotid, and left subclavian arteries. Left and right carotid arteries of the neck are normal in CTA appearance. Vertebral arteries are bilaterally patent with right larger in caliber. Visualized soft tissues demonstrates scattered small cervical lymph nodes bilaterally. 6 mm right thyroid hypodense nodule/cyst. Supra and infraglottic airway are widely patent. Cervical spine intact with mild degenerative changes of the visualized cervical thoracic spine. T3 vertebral body demonstrate remote appearing minimal anterior wedging. Bilobed bone cyst body of right mandible overall measuring 1.1 x 1.7 cm. Lung apices are clear. Impression: Normal CTA neck with contrast exam. Incidental tiny right thyroid nodule/cyst and chronic bony findings. Comment: Preliminary interpretation was made by [facility]. No critical discrepancy.
--- NOTE | 2021-04-16 09:43 | XRAY ---
Indication: Chest pain and lethargy. Comparison: September 14, 2017. Portable chest demonstrates new minimal left base fibrosis/scarring. Remaining heart and lungs unremarkable with stable incidental left suprahilar calcified node. Bony thorax intact again with mild degenerative changes. Impression: Continued nonacute chest with chronic features.
--- NOTE | 2021-04-16 09:43 | XRAY ---
Indication: Vertigo, dizziness, and headache. Initial CT head was performed without contrast. Then conventional contrast enhanced CTA head performed using 80 cc Isovue 370 contrast. Two-dimensional sagittal and coronal reformatted images obtained. Additional 3-dimensional reformatted images obtained using a separate workstation. Comparison: None Following CT exam, patient complained of itching and hives. This was reported to the ER clinician and treated appropriately. Distal internal carotid arteries are bilaterally symmetric without critical stenosis, dissection, or AV malformation. Normal carotid terminus with branching A1 and M1 segments bilaterally. More distal anterior cerebral, middle cerebral, anterior communicating, and posterior communicating arteries are normal in CTA appearance. Posterior circulation demonstrates normal CTA appearance to the basilar artery, basilar tip, posterior cerebral, superior cerebellar, and anterior-inferior cerebellar arteries bilaterally. Venous drainage/sinuses unremarkable. Noncontrast images of the brain demonstrates normal brain parenchyma, ventricles, and bony calvarium. Postcontrast images are negative for abnormal enhancing intra-or extra-axial mass. Visualized paranasal sinuses and mastoid air cells are clear. Impression: 1. Normal CTA brain with contrast exam. 2. Normal CT head with and without contrast exam. Comment: Preliminary interpretation was made by [facility]. No critical discrepancy.
== END 2021-04-16 03:25 | disposition home or self-care (01) ==
LOC: ED 21:41
DX: R42 Dizziness and giddiness (principal); G89.29 Other chronic pain; J44.9 Chronic obstructive pulmonary disease, unspecified; E11.9 Type 2 diabetes mellitus without complications
CPT/HCPCS: 36415; 70496; 70498; 71045; 80053; 80307; 81001; 83605; 84484; 85025; 93005; 96374; 99284; J1200; J1885; G0480

== ENCOUNTER 2021-10-06 01:33 | Emergency (ER) | payer OTHER ==
[2021-10-06] MEDS ORDERED: TORAdol 30 mg Injection IM ONE (02:30)
[2021-10-06] MEDS ORDERED: TORAdol 30 mg Injection ONE (02:35)
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
[2021-10-06 03:06] LABS: Appearance CLEAR (CLEAR); Bilirubin NEGATIVE (NEGATIVE); Blood NEGATIVE Ery/ul (0-5); Glucose >=500 mg/dL (NEGATIVE); Ketones SMALL (NEGATIVE); Leukocyte Esterase NEGATIVE (NEGATIVE); Mucus SLIGHT /HPF (NEGATIVE); Nitrite NEGATIVE (NEGATIVE); Protein,Urine Dip 30 (Negative); Specific Gravity 1.031 (1.005-1.025); Urobilinogen NEGATIVE mg/dL (0-1)
[2021-10-06 04:32] LABS: CHLAMYDIA DNA NOT DETECTED (NEGATIVE); GC DNA Probe NOT DETECTED (NEGATIVE)
--- NOTE | 2021-10-06 08:49 | XRAY ---
Indication: Left testicle pain/lump. Two-dimensional testicular sonogram performed. Comparison: None Both testicles homogeneous in echogenicity with normal color perfusion. Right testicle measures 3.3 x 1.9 x 3.1 cm and the left measures 2.7 x 2.2 x 3.2 cm. Left and right epididymis sonographically unremarkable. There is mild left-sided varicoceles accentuated with Valsalva maneuvering. No suspicious extratesticular mass or hydrocele. Posterior left scrotum demonstrates subcutaneous irregular beaded fluid collection measuring at least 6 mm in diameter and 3.4 cm in length without abnormal color Doppler flow. There is surrounding soft tissue edema with hyperemic color flow favoring inflammatory/infectious process. Impression: 1. Posterior left scrotal soft tissue edema with hyperemic color flow favoring cellulitis. Underlying small fluid collection as detailed. Rule out abscess. 2. Left-sided varicoceles. 3. Negative for suspicious testicular mass or torsion. Comment: Preliminary report was given.
== END 2021-10-06 04:15 | disposition left against medical advice (07) ==
LOC: ED 01:33
DX: N50.819 Testicular pain, unspecified (principal)
CPT/HCPCS: 76870; 81001; 87491; 87591; 96372; 99284; J1885

== ENCOUNTER 2024-04-29 01:33 | Observation (INO) | payer OTHER ==
[2024-04-29] MEDS ORDERED: solu-MEDROL ONE (02:05)
[2024-04-29] MEDS ORDERED: ROCEPHIN 2 GM/100 ML NACL 2 GM/100 ML IVPB IV ONE (02:05)
[2024-04-29] MEDS ORDERED: Zithromax 500 MG/ 250 ML NaCl Premix 500 MG/250 ML IVPB IV ONE (02:05)
[2024-04-29] MEDS ORDERED: Sterile H2O 10 ml IJ ONE (02:05)
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
[2024-04-29] MEDS ORDERED: DUONEB 0.5-3 MG/3 ml Neb IH ONE (02:08)
[2024-04-29] MEDS: solu-MEDROL 125 MG, Sterile H2O 10 ml 2 ML IV ONE (02:09)
[2024-04-29] MEDS: DUONEB 0.5-3 MG/3 ml Neb IH ONE (02:09)
[2024-04-29] MEDS: Zithromax 500 MG/ 250 ML NaCl Premix 500 MG/250 ML IVPB IV STA (02:10)
[2024-04-29] MEDS: ROCEPHIN 2 GM/100 ML NACL 2 GM/100 ML IVPB IV ONE (02:10)
[2024-04-29] MEDS: Sodium Chloride 0.9% 1000 ML 1,000 ML IV SCH (02:12)
[2024-04-29] MEDS ORDERED: Sodium Chloride 0.9% 1000 ML 1,000 ML ONE (02:12)
[2024-04-29 02:54] LABS: Absolute Neutrophil Ct (ANC) 11.22 x10^3/uL (1.4-6.9); BASOPHIL % 0.6 % (0.0-0.4); Basophil (Absolute #) 0.09 x10^3/uL (0-0.4); Eosinophil % 0.5 % (0.00-5.0); Eosinophil (Absolute #) 0.08 x10^3/uL (0-0.5); Hematocrit 51.3 % (42-50); Hemoglobin 17.2 g/dL (12.5-18.0); IMMATURE GRAN # 0.13 x10^3u/L (0.00-0.03); IMMATURE GRAN % 0.8 % (0.00-0.4); Lymphocyte (Absolute #) 3.44 x10^3/uL (1.0-4.6); Lymphocytes % 21.1 % (24.0-44.0); Mean Cell Volume 92.9 fL (78-100); Mean Corpuscular Hemoglobin 31.2 pg (26-32); Mean Corpuscular Hgb Concent. 33.5 g/dL (32-36); Monocyte (Absolute #) 1.35 x10^3/uL (0.0-1.3); Monocytes % 8.3 % (0.0-12.0); Neutrophil % 68.7 % (36.0-66.0); Platelet Count 156 x10^3/uL (150-450); Red Blood Count 5.52 x10^6/uL (4.1-5.6); Red Cell Distribution Width 13.3 % (11.5-14.0); White Blood Count 16.3 x10^3/uL (4.0-10.5)
[2024-04-29 02:55] LABS: ALBUMIN 4.6 g/dL (3.5-5.0); ANION GAP 14.6 MEQ/L (5-15); BILIRUBIN,TOTAL 0.7 mg/dL (0.2-1.3); Creatinine 1 0.9 mg/dL (0.66-1.25); EST GLOMERULAR FILTRATION RATE 96.6 ML/MIN; Potassium 3.7 mmol/L (3.5-5.1)
[2024-04-29 03:13] LABS: PROCALCITONIN 0.109 ng/mL (0.030-0.080)
[2024-04-29 03:19] LABS: INFLUENZA A NEGATIVE (NEGATIVE); INFLUENZA B NEGATIVE (NEGATIVE); RESPIRATORY SYNCTIAL VIRUS NEGATIVE (NEGATIVE); SARS-CoV-2 Xpert Express NEGATIVE (NEGATIVE)
[2024-04-29] MEDS ORDERED: MORPHINE SULFATE 4 MG INJ ONE (03:32)
[2024-04-29] MEDS ORDERED: Zofran 4 MG/2 ML VIAL ONE (03:32)
[2024-04-29] MEDS: MORPHINE SULFATE 4 MG INJ IV ONE (03:33)
[2024-04-29] MEDS: Zofran 4 MG/2 ML VIAL IV ONE (03:33)
[2024-04-29] MEDS: HYDROCODONE-ACETAMIN 2.5-108/5 ML SOLUTION PO STA (03:44)
[2024-04-29] MEDS ORDERED: HYDROCODONE-ACETAMIN 2.5-108/5 ML SOLUTION ONE (03:44)
[2024-04-29] MEDS ORDERED: DUONEB 0.5-3 MG/3 ml Neb IH PRN (05:42)
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
[2024-04-29] MEDS: DUONEB 0.5-3 MG/3 ml Neb IH SCH (06:58)
[2024-04-29] MEDS: Nicoderm CQ 21 MG TOP SCH (07:07)
--- NOTE | 2024-04-29 08:08 | XRAY ---
Indication: Productive cough. Comparison: April 15, 2021 Portable apical lordotic chest unchanged again hyperinflated and clear. Heart not enlarged again with incidental left hilar calcified nodes. Bony thorax intact again with osteopenia and mild degenerative changes. No new/acute findings.
[2024-04-29] MEDS: NORCO 5/325 MG PO PRN (08:09)
[2024-04-29] MEDS: solu-MEDROL 40 MG, Sterile H2O 10 ml 1 ML IV SCH (10:09)
[2024-04-29] MEDS: ENOXAPARIN SODIUM SQ SCH (10:10)
[2024-04-29] MEDS: MUCINEX DM 600/30MG PO SCH (10:10)
--- NOTE | 2024-04-29 10:15 | PCM.NOTE ---
63-year-old man with history of COPD, chronic pain, anxiety, tobacco dependence, not currently under medical care, here with COPD exacerbation and hypoxia. Endorses continued complaints of dyspnia and cough with green sputum. Currently on 2L of oxygen, baseline RA. WBC elevated at 16.3. CXR showing hyperinflated and clear chest. Patient is a daily smoker of 1.5 PPD, advised cessation and nicotine patch provided. Will add azithromycin/and mucinex. Patient has multiple social needs as he is unable to afford food, prescriptions, no PCP, and a home nebulizer machine that is broken. He may need oxygen on discharge as well. CM to elevate for home needs. Plan for continued abx, steroids, Nebs/bronchodilators.
[2024-04-29 10:43] LABS: Appearance Clear (Clear); Bacteria None Seen /HPF (None Seen); Bilirubin Negative (Negative); Blood Negative (Negative); Epithelial Cells None Seen /HPF (None Seen); Glucose, Urine >=1000 mg/dL (Negative); Hyaline Casts NONE SEEN /LPF (0-2); Ketones Trace (Negative); Leukocyte Esterase Negative (Negative); Nitrite Negative (Negative); Ph 5.5 (4.6-8.0); Protein,Urine Dip Negative (Negative); RBC 0-2 /HPF (0-5); Specific Gravity >=1.030 (1.005-1.030); WBC 0-2 /HPF (0-5)
[2024-04-29 10:46] LABS: ADD URINE CULTURE? NO (NO)
[2024-04-29] MEDS: Zofran 4 MG/2 ML VIAL IV PRN (18:07)
[2024-04-29] MEDS: ROCEPHIN 1 GM / 100 ML NaCl 1 GM/100 ML IVPB IV SCH (22:06)
[2024-04-29] MEDS ORDERED: Sodium Chloride 0.9% 250 ML 250 ML IV ONE (22:31)
[2024-04-29] MEDS: Zithromax 500 MG/ 250 ML NaCl Premix 500 MG/250 ML IVPB IV SCH (22:43)
[2024-04-30 05:03] LABS: Hematocrit 46.7 % (42-50); Hemoglobin 15.5 g/dL (12.5-18.0); Mean Cell Volume 95.3 fL (78-100); Mean Corpuscular Hemoglobin 31.6 pg (26-32); Mean Corpuscular Hgb Concent. 33.2 g/dL (32-36); Mean Platelet Volume 11.6 fL (7.5-11.0); Platelet Count 149 x10^3/uL (150-450); Red Cell Distribution Width 13.4 % (11.5-14.0); White Blood Count 19.1 x10^3/uL (4.0-10.5)
[2024-04-30 05:16] LABS: ANION GAP 13.9 MEQ/L (5-15); Calcium 9.4 mg/dL (8.4-10.2); Creatinine 1 0.67 mg/dL (0.66-1.25); EST GLOMERULAR FILTRATION RATE 105.6 ML/MIN
[2024-04-30] MEDS: HUMALOG SQ PRN (08:27)
[2024-04-30] MEDS: Glucophage 500 MG PO SCH (10:56)
[2024-04-30] MEDS: Nicoderm CQ 21 MG TOP SCH (10:56)
--- NOTE | 2024-04-30 11:53 | PCM.NOTE ---
Date and Time: 04/30/24 1137 Subjective Assessment: 63-year-old man with history of COPD, diffuse chronic pain arthritis, tobacco dependence, and depression, not currently under treatment for any of these. He presented to ED on 04/29/24 with cough and dyspnea. He notes that he is always short of breath chronically even after any exertion or for a few minutes and feels diffusely weak. He has been diagnosed with COPD and hospitalized a few times in the past for this, but has been out of any inhalers or nebulizers for over 2 years, and is not on home oxygen. Does not currently see a primary care physician. For the last week, he has been having worsening dyspnea and cough productive of green sputum, with worsening dyspnea even with minimal exertion. Previously he has borrowed a friend's inhaler, but does not have any currently, and has not tried anything to relieve his dyspnea. He notes chronic pain throughout his body, particularly in his lower back, upper spine, knees, ankles, feet, neck and hands. He occasionally takes Aleve gels for pain, going through 40 pills in a week at a time. He smokes one and half packs per day but is trying to cut down to 1 pack/day. He occasionally smokes marijuana to relieve his chronic joint pains. In the ED, he was noted to have wheezing and hypoxia, with an SpO2 of 91% on room air, improving to 94% on 2 L. He was given morphine, Solu-Medrol, Rocephin and azithromycin, DuoNebs, and Zofran in the ED. Plan of care continued IP. Patient has multiple social needs as he is unable to afford food, prescriptions, no PCP, and a home nebulizer machine that is broken. He may need oxygen on discharge as well. CM to elevate for home needs. He states today he lives in a cabin in [place] and is about to loose this and will be homeless as he does not have enough money with his Social security to pay for all his needs. He states he will shoot himself in the head if he looses his cabin. Asked if he truly intends to harm himself and he again stated he will shoot himself in the head with a gun if he looses his cabin. He explained he will not go to a homeless senior care and will live outside if he has to. Explained I would like him to speak with a mental health counselor and he stated, "there is no need for that and I said what I said and mean it." Tele psych consult ordered. CXR negative for pneumonia - Review of Systems Constitutional: No Fever, No Chills Eyes: No Symptoms Ears, Nose, & Throat: No Symptoms Respiratory: Cough, Short Of Breath, Wheezing Cardiac: No Chest Pain, No Edema, No Syncope Abdominal/Gastrointestinal: No Abdominal Pain, No Nausea, No Vomiting, No Diarrhea Genitourinary Symptoms: No Dysuria Musculoskeletal: No Back Pain, No Neck Pain Skin: No Rash Neurological: No Dizziness, No Focal Weakness, No Sensory Changes Psychological: No Symptoms, Suicidal Ideations, Mood Changes Endocrine: No Symptoms Hematologic/Lymphatic: No Symptoms Immunological/Allergic: No Symptoms Objective Exam General Appearance: no apparent distress, alert Neurologic Exam: alert, oriented x 3, cooperative, normal mood/affect, nml cerebellar function, sensation nml, No motor deficits Skin Exam: normal color, warm, dry Eye Exam: PERRL, EOMI, eyes nml inspection Ears, Nose, Throat Exam: normal ENT inspection, pharynx normal, moist mucous membranes Neck Exam: normal inspection, non-tender, supple, full range of motion Respiratory Exam: normal breath sounds, lungs clear, wheezing, No respiratory distress Cardiovascular Exam: regular rate/rhythm, normal heart sounds Gastrointestinal/Abdomen Exam: soft, No tenderness, No mass Extremity Exam: normal inspection, normal range of motion Back Exam: normal inspection, normal range of motion, No CVA tenderness, No vertebral tenderness Male Genitalia Exam: deferred Rectal Exam: deferred Objective Data Vital Signs: Vital Signs - 24 hr Temp Pulse Resp BP Pulse Ox 04/30/24 07:12 97.6 F 71 16 124/59 85 L 04/30/24 06:56 93 L 04/30/24 06:54 85 L 04/30/24 06:23 106 H 20 92 L 04/30/24 04:00 97.7 F 87 24 117/61 94 L 04/30/24 01:09 74 16 91 L 04/30/24 00:00 96.8 F 75 18 123/78 93 L 04/29/24 20:00 97.6 F 84 23 138/79 92 L 04/29/24 18:50 82 20 90 L 04/29/24 16:00 98.7 F 94 H 20 143/80 91 L 04/29/24 13:04 94 H 17 92 L Pain Assessment - Last Documented Pain Intensity 4 Pain Scale Used 0-10 Pain Scale Intake and Output: Intake & Output 04/27/24 04/28/24 04/29/24 04/30/24 11:59 11:59 11:59 11:59 Intake Total 2140 Output Total 360 9645 Balance -550 -735 Weight 96.6 kg Lab Results: Lab Results-Last 24 Hours 04/30/24 04/30/24 04/30/24 Range/Units 04:35 04:35 04:35 WBC 19.1 H (4.0-10.5) x10^3/uL RBC 4.90 (4.1-5.6) x10^6/uL Hgb 15.5 (12.5-18.0) g/dL Hct 46.7 (42-50) % MCV 95.3 (78-100) fL MCH 31.6 (26-32) pg MCHC 33.2 (32-36) g/dL RDW 13.4 (11.5-14.0) % Plt Count 149 L (150-450) x10^3/uL MPV 11.6 H (7.5-11.0) fL Sodium 139 (135-145) mmol/L Potassium 4.0 (3.5-5.1) mmol/L Chloride 105 (98-107) mmol/L Carbon Dioxide 24 (22-30) mmol/L Anion Gap 13.9 (5-15) MEQ/L BUN 17 (9-20) mg/dL Creatinine 0.67 (0.66-1.25) mg/dL Estimated GFR 105.6 ML/MIN Glucose 278 H (74-106) mg/dL Hemoglobin A1c 8.56 H (4.5-6.0) % Calcium 9.4 (8.4-10.2) mg/dL Radiology Exams: Radiology Procedures Category Date Time Status CHEST 1 VIEW (PORTABLE) Stat Exams 04/29/24 01:49 Completed Multi-Disciplinary Progress Notes: Multi-Disciplinary Progress Notes 04/30/24 06:56 Respiratory Note by Maricruz Pinedo PT'S O2 SAT ON ROOM AIR WHILE AT REST WAS 85%. PT WAS PLACED BACK ON 2LPM VIA NASAL CANNULA. O2 SAT INCREASED TO 93%. Initialized on 04/30/24 06:56 - END OF NOTE Assessment/Plan (1) COPD with exacerbation Current Visit: Yes Status: Acute Assessment & Plan: - on 2lNC 93% - baseline RA - Steroids, duonebs, antibiotics. Code(s): J44.1 - CHRONIC OBSTRUCTIVE PULMONARY DISEASE W (ACUTE) EXACERBATION (2) Type II diabetes mellitus Current Visit: Yes Status: Acute Qualifiers: Diabetes mellitus chcf insulin use: without termite helper use Assessment & Plan: - Pt not currently on meds for this - Discussed in detail dx - pt reports he has been told in the past he had type II dm and it resolved and stopped meds. - accuchecks ac/hs, humalog s/s mod dosing - started metformin 1,000mg BID - carb consistent diet - nutrition consult - A1C 8.56- uncontrolled (3) Suicidal ideation Current Visit: Yes Status: Acute Assessment & Plan: - Psych consult - intends to shoot himself with a gun to the head if he looses his cabin and becomes homeless- he reports Code(s): R45.851 - SUICIDAL IDEATIONS (4) Pneumonia Current Visit: Yes Status: Resolved Assessment & Plan: - CXR- negative for pneumonia Portable apical lordotic chest unchanged again hyperinflated and clear. Heart not enlarged again with incidental left hilar calcified nodes. Bony thorax intact again with osteopenia and mild degenerative changes. No new/acute findings. - WBC 19.1- 2:2 steroids Code(s): J18.9 - PNEUMONIA, UNSPECIFIED ORGANISM (5) Tobacco abuse Current Visit: No Status: Chronic Assessment & Plan: - advised cessation - nicotine patch Code(s): Z72.0 - TOBACCO USE (6) Obesity (BMI 30.0-34.9) Current Visit: Yes Status: Chronic Assessment & Plan: - advised ADA diet and exercise control VTE:Lovenox Next of KIN: none D/C plan:1-2 days Code status: SCO/DNR Code(s): E66.9 - OBESITY, UNSPECIFIED
[2024-04-30] MEDS ORDERED: Zithromax 500 MG/ 250 ML NaCl Premix 500 MG/250 ML IVPB IV SCH (22:00)
[2024-05-01 04:42] LABS: Hematocrit 47.8 % (42-50); Hemoglobin 15.4 g/dL (12.5-18.0); Mean Cell Volume 96.8 fL (78-100); Mean Corpuscular Hemoglobin 31.2 pg (26-32); Mean Corpuscular Hgb Concent. 32.2 g/dL (32-36); Mean Platelet Volume 11.5 fL (7.5-11.0); Platelet Count 163 x10^3/uL (150-450); Red Blood Count 4.94 x10^6/uL (4.1-5.6); Red Cell Distribution Width 13.2 % (11.5-14.0); White Blood Count 16.8 x10^3/uL (4.0-10.5)
[2024-05-01 05:05] LABS: ALBUMIN 3.8 g/dL (3.5-5.0); ANION GAP 12.6 MEQ/L (5-15); BILIRUBIN,TOTAL 0.4 mg/dL (0.2-1.3); Calcium 9.1 mg/dL (8.4-10.2); Creatinine 1 0.73 mg/dL (0.66-1.25); EST GLOMERULAR FILTRATION RATE 102.9 ML/MIN; Potassium 4.3 mmol/L (3.5-5.1); Total Protein 6.8 g/dL (6.3-8.2)
--- NOTE | 2024-05-01 10:17 | DS ---
ADMISSION DIAGNOSIS: 1. DISCHARGE DIAGNOSIS: 1. SIGNIFICANT LABORATORY DATA: HOSPITAL COURSE:
--- NOTE | 2024-05-01 10:17 | XRAY ---
Indication: Increased short of breath. Comparison: April 29, 2024 PA/lateral chest again demonstrates COPD without focal infiltrate, consolidation, or large effusion. Stable incidental tiny left base and left hilar calcified granulomas. Heart not enlarged. No new/acute findings.
[2024-05-01] MEDS: PIPERACILLIN/TAZOBACTAM 3.375 GM in Sodium Chloride 100ML MINI-BAG PLUS 100 ML IV SCH (11:49)
[2024-05-01] MEDS: HUMALOG SQ SCH (11:49)
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
[2024-05-01] MEDS: Advair Hfa 230/21 Mcg COMMON CANISTER IH SCH (18:37)
[2024-05-02 05:21] LABS: Hematocrit 46.4 % (42-50); Hemoglobin 15.4 g/dL (12.5-18.0); Mean Cell Volume 95.1 fL (78-100); Mean Corpuscular Hemoglobin 31.6 pg (26-32); Mean Corpuscular Hgb Concent. 33.2 g/dL (32-36); Mean Platelet Volume 11.6 fL (7.5-11.0); Platelet Count 166 x10^3/uL (150-450); Red Blood Count 4.88 x10^6/uL (4.1-5.6); Red Cell Distribution Width 13.2 % (11.5-14.0); White Blood Count 13.9 x10^3/uL (4.0-10.5)
[2024-05-02 06:08] LABS: ALBUMIN 3.7 g/dL (3.5-5.0); ANION GAP 11.8 MEQ/L (5-15); BILIRUBIN,TOTAL 0.4 mg/dL (0.2-1.3); Calcium 9.1 mg/dL (8.4-10.2); Creatinine 1 0.73 mg/dL (0.66-1.25); EST GLOMERULAR FILTRATION RATE 102.9 ML/MIN; Potassium 4.4 mmol/L (3.5-5.1); Total Protein 6.6 g/dL (6.3-8.2)
[2024-05-02 07:36] VITALS: RESP 18
[2024-05-02] MEDS: Miralax Powder 17GM PACKET PO ONE (09:39)
[2024-05-02] MEDS: TYLENOL 325 MG PO PRN (09:43)
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
[2024-05-02 12:12] VITALS: BP 140/91; TEMP 97.7
[2024-05-02 14:01] VITALS: PULSE 102; O2SAT 91
== END 2024-05-02 18:54 | disposition home or self-care (01) ==
LOC: ED 01:33 → MED SURG 03:40
PROVIDERS: ADMIT Internal Medicine; ATTEND Internal Medicine
DX: J44.1 Chronic obstructive pulmonary disease with (acute) exacerbation (principal); E11.9 Type 2 diabetes mellitus without complications; R45.851 Suicidal ideations; J18.9 Pneumonia, unspecified organism; Z59.811 Housing instability, housed, with risk of homelessness; Z59.12 Inadequate housing utilities; Z77.120 Contact with and (suspected) exposure to mold (toxic); Z59.82 Transportation insecurity; Z72.0 Tobacco use; E66.9 Obesity, unspecified; F32.A Depression, unspecified; G89.29 Other chronic pain
CPT/HCPCS: 0241U; 36000; 36415; 71045; 71046; 80048; 80053; 81001; 82947; 83036; 83605; 83735; 83880; 84145; 84484; 85025; 85027; 87040; 87070; 90791; 93005; 93041; 93268; 94640; 94760; 96365; 96368; 96374; 97110; 97161; 97165; 97530; 99285; G0378; Q3014; J0456; J0696; J1650; J1817; J2270; J2405; J2919; A9270-GY

== ENCOUNTER 2024-11-05 16:41 | Emergency (ER) | payer OTHER ==
[2024-11-05] MEDS ORDERED: DUONEB 0.5-3 MG/3 ml Neb IH ONE (16:52)
[2024-11-05] MEDS: DUONEB 0.5-3 MG/3 ml Neb IH ONE (16:52)
[2024-11-05 16:55] VITALS: TEMP 98.5
[2024-11-05] MEDS ORDERED: Sterile H2O 10 ml IJ ONE (17:01)
[2024-11-05] MEDS ORDERED: solu-MEDROL ONE (17:01)
[2024-11-05] MEDS: solu-MEDROL 125 MG, Sterile H2O 10 ml 2 ML IV ONE (17:02)
[2024-11-05] MEDS ORDERED: Sodium Chloride 0.9% 1000 ML 1,000 ML ONE (17:02)
[2024-11-05] MEDS: Sodium Chloride 0.9% 1000 ML 1,000 ML IV STA (17:02)
[2024-11-05 17:12] LABS: Absolute Neutrophil Ct (ANC) 5.54 x10^3/uL (1.78-5.38); BASOPHIL % 0.5 % (0.2-1.2); Basophil (Absolute #) 0.04 x10^3/uL (0.01-0.08); Eosinophil % 1.1 % (0.8-7.0); Hematocrit 49.3 % (40.1-51.0); Hemoglobin 16.7 g/dL (13.7-17.5); IMMATURE GRAN # 0.05 x10^3u/L (0.001-0.031); IMMATURE GRAN % 0.6 % (0.001-0.429); Lymphocyte (Absolute #) 2.47 x10^3/uL (1.32-3.57); Mean Cell Volume 93.7 fL (79.0-92.2); Mean Corpuscular Hemoglobin 31.7 pg (25.7-32.2); Mean Corpuscular Hgb Concent. 33.9 g/dL (32.3-36.5); Mean Platelet Volume 11.8 fL (9.4-12.4); Monocyte (Absolute #) 0.62 x10^3/uL (0.30-0.82); Neutrophil % 62.8 % (34.0-67.9); Platelet Count 150 x10^3/uL (163-337); Red Blood Count 5.26 x10^6/uL (4.63-6.08); Red Cell Distribution Width 12.5 % (11.6-14.4); White Blood Count 8.8 x10^3/uL (4.23-9.07)
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
[2024-11-05 17:34] LABS: ALBUMIN 4.3 g/dL (3.5-5.0); ALKALINE PHOSPHATASE 110 U/L (38-126); ANION GAP 11.9 MEQ/L (5-15); BLOOD UREA NITROGEN 20 mg/dL (9-20); CHLORIDE 104 mmol/L (98-107); Calcium 9.8 mg/dL (8.4-10.2); Carbon Dioxide 24 mmol/L (22-30); Creatinine 1 0.71 mg/dL (0.66-1.25); EST GLOMERULAR FILTRATION RATE 103.1 ML/MIN; Glucose 251 mg/dL (74-106); NT PRO BNPII < 20.0 pg/mL (<300); Potassium 4.2 mmol/L (3.5-5.1); SGOT/AST 35 U/L (17-59); SGPT/ALT 33 U/L (0-50); SODIUM 135 mmol/L (135-145); Total Protein 6.8 g/dL (6.3-8.2)
[2024-11-05 17:56] LABS: INFLUENZA A NEGATIVE (NEGATIVE); INFLUENZA B NEGATIVE (NEGATIVE); RESPIRATORY SYNCTIAL VIRUS NEGATIVE (NEGATIVE); SARS-CoV-2 Xpert Express NEGATIVE (NEGATIVE)
[2024-11-05] MEDS ORDERED: BENADRYL 50 MG/ML ONE (18:37)
[2024-11-05] MEDS: BENADRYL 50 MG/ML IV ONE (18:37)
[2024-11-05] MEDS ORDERED: ANTIVERT 25 MG ONE (18:40)
[2024-11-05] MEDS ORDERED: PERCOCET TABLET 5/325MG ONE (18:40)
[2024-11-05] MEDS: ANTIVERT 25 MG PO ONE (18:41)
[2024-11-05] MEDS: PERCOCET TABLET 5/325MG PO ONE (18:41)
[2024-11-05 22:01] VITALS: BP 130/71; PULSE 71; RESP 17; O2SAT 97
--- NOTE | 2024-11-06 08:38 | XRAY ---
Indication: Dizziness. Headache. Multiple contiguous axial images obtained through the head without contrast. Comparison: April 16, 2021 Normal appearing brain parenchyma, ventricles, and bony calvarium for patient's age. Visualized paranasal sinuses and mastoid air cells are clear. Impression: Continued normal CT head without contrast exam.
--- NOTE | 2024-11-06 08:48 | XRAY ---
Indication: Pulmonary embolus. Short of breath. Left chest pain. Multiple contiguous axial images obtained through the chest using 100 cc Isovue 370 contrast and PE protocol. Comparison: CT chest without contrast January 30, 2017. Good opacification pulmonary arteries including lobar and segmental branches. No pulmonary embolus. Heart not enlarged. Aorta is normal in course and caliber. Stable small mediastinal and left hilar calcified nodes. No pathologic mediastinal/hilar lymphadenopathy. Lungs demonstrate minimal bilateral dependent atelectasis. No suspicious pulmonary mass/nodule, infiltrate, effusion, or pneumothorax. Bony thorax intact again with mild degenerative changes throughout the spine. CT abdomen/pelvis reported separately. Impression: 1. Negative pulmonary embolus. No new/acute cardiopulmonary abnormalities. 2. Chronic findings including degenerative spondylosis and old granulomatous disease.
--- NOTE | 2024-11-06 08:52 | XRAY ---
Indication: Left upper quadrant pain. Multiple contiguous axial images obtained through the abdomen and pelvis using 100 cc Isovue 370 contrast. Comparison: January 18, 2019 CT chest reported separately. Noncontrasted stomach and bowel loops appear nonobstructed with normal appendix. Again mild diffuse fecal stasis, fatty liver, and 2.3 cm left renal cyst. No free fluid/air. Remaining liver, gallbladder, pancreas, spleen, adrenal glands, kidneys, ureters, and bladder are unremarkable. Again mild scattered aortoiliac calcifications. No AAA or pathologic retroperitoneal lymphadenopathy. Osseous structures intact again with minimal/mild degenerative changes throughout thoracolumbar spine. No ventral or inguinal hernias. Impression: 1. Again mild diffuse fecal stasis, fatty liver, left renal cyst, degenerative spondylosis, and arteriosclerotic disease. 2. Remaining CT abdomen/pelvis with contrast exam continues to be negative.
--- NOTE | 2024-11-06 08:54 | XRAY ---
Indication: Pneumonia. Comparison: May 01, 2024 Portable chest less inflated crowding both lung bases. No focal infiltrate, consolidation, or large effusion. Heart not enlarged for AP portable technique. Stable small mediastinal calcified nodes. Bony thorax intact again with osteopenia and mild degenerative changes. Impression: Nonacute underinflated chest with chronic features.
== END 2024-11-05 22:00 | disposition home or self-care (01) ==
LOC: ED 16:41
DX: R42 Dizziness and giddiness (principal); Z59.811 Housing instability, housed, with risk of homelessness; Z59.82 Transportation insecurity; R07.9 Chest pain, unspecified; R10.12 Left upper quadrant pain; F17.200 Nicotine dependence, unspecified, uncomplicated; H93.19 Tinnitus, unspecified ear
CPT/HCPCS: 0241U; 36415; 70450; 71045; 71260; 74177; 80053; 83880; 84484; 85025; 85379; 87651; 93005; 93041; 94640; 96360; 96374; 96375; 99285; 99284; J1200; J2919; A9270-GY

== ENCOUNTER 2024-12-14 18:09 | Emergency (ER) | payer OTHER ==
[2024-12-14 19:36] LABS: INFLUENZA B NEGATIVE (NEGATIVE); RESPIRATORY SYNCTIAL VIRUS NEGATIVE (NEGATIVE); SARS-CoV-2 Xpert Express NEGATIVE (NEGATIVE)
[2024-12-14 19:39] LABS: INFLUENZA A POSITIVE (NEGATIVE)
[2024-12-14 20:02] LABS: Absolute Neutrophil Ct (ANC) 4.73 x10^3/uL (1.78-5.38); BASOPHIL % 0.5 % (0.2-1.2); Basophil (Absolute #) 0.03 x10^3/uL (0.01-0.08); Eosinophil % 0.9 % (0.8-7.0); Eosinophil (Absolute #) 0.06 x10^3/uL (0.04-0.54); Hematocrit 50.3 % (40.1-51.0); Hemoglobin 17.5 g/dL (13.7-17.5); IMMATURE GRAN # 0.03 x10^3u/L (0.001-0.031); IMMATURE GRAN % 0.5 % (0.001-0.429); Lymphocytes % 19.8 % (21.8-53.1); Mean Corpuscular Hgb Concent. 34.8 g/dL (32.3-36.5); Mean Platelet Volume 12.2 fL (9.4-12.4); Monocytes % 6.1 % (5.3-12.2); Neutrophil % 72.2 % (34.0-67.9); Platelet Count 105 x10^3/uL (163-337); Red Blood Count 5.47 x10^6/uL (4.63-6.08); White Blood Count 6.6 x10^3/uL (4.23-9.07)
[2024-12-14] MEDS ORDERED: TORAdol 30 mg Injection ONE (20:04)
[2024-12-14] MEDS ORDERED: Tamiflu 75MG Capsule PO ONE (20:04)
[2024-12-14] MEDS ORDERED: Zithromax 250 MG TABLET ONE (20:04)
[2024-12-14] MEDS: Zithromax 250 MG TABLET PO ONE (20:06)
[2024-12-14] MEDS: TORAdol 30 mg Injection IV ONE (20:06)
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
[2024-12-14] MEDS: Tamiflu 75MG Capsule PO ONE (20:07)
[2024-12-14 20:12] LABS: ALBUMIN 4.4 g/dL (3.5-5.0); ANION GAP 12.8 MEQ/L (5-15); BILIRUBIN,TOTAL 0.6 mg/dL (0.2-1.3); Creatinine 1 0.72 mg/dL (0.66-1.25); EST GLOMERULAR FILTRATION RATE 102.7 ML/MIN; Potassium 4.1 mmol/L (3.5-5.1); Total Protein 6.9 g/dL (6.3-8.2)
[2024-12-14] MEDS ORDERED: DUONEB 0.5-3 MG/3 ml Neb IH ONE (20:17)
[2024-12-14 20:42] VITALS: PULSE 104; RESP 20
[2024-12-14] MEDS: DUONEB 0.5-3 MG/3 ml Neb IH ONE (20:43)
[2024-12-14 21:06] VITALS: O2SAT 92
[2024-12-14 21:07] VITALS: BP 119/75; TEMP 98.4
--- NOTE | 2024-12-15 08:18 | XRAY ---
Indication: Fever. Cough. Comparison: November 05, 2024 Portable chest now hyperinflated with minimal left base subsegmental atelectasis/scarring. No focal infiltrate, consolidation, or large effusion. Heart and mediastinal structures within normal limits with incidental small left hilar calcified nodes. Bony thorax intact again with osteopenia and degenerative changes. Impression: Nonacute hyperinflated chest with chronic features.
== END 2024-12-14 21:26 | disposition home or self-care (01) ==
LOC: ED 18:09
DX: J44.0 Chronic obstructive pulmonary disease with (acute) lower respiratory infection (principal); J20.9 Acute bronchitis, unspecified; J10.1 Influenza due to other identified influenza virus with other respiratory manifestations; M79.10 Myalgia, unspecified site; R05.1 Acute cough; I10 Essential (primary) hypertension; E11.9 Type 2 diabetes mellitus without complications; Z79.899 Other long term (current) drug therapy; Z99.81 Dependence on supplemental oxygen; Z59.819 Housing instability, housed unspecified; Z59.82 Transportation insecurity
CPT/HCPCS: 0241U; 36415; 71045; 80053; 83605; 84145; 85025; 87040; 87651; 94640; 96374; 99285; 99284; J1885; A9270-GY